=== PATIENT | male | born 1970 | race Caucasian/White ===

== ENCOUNTER 2017-04-21 07:03 | Emergency (ER) | payer BC, OTHER ==
[2017-04-21 07:15] VITALS: BP 156/84; BMI 28.8
[2017-04-21] MEDS ORDERED: TORADOL 60 MG VIAL ONE (08:07)
[2017-04-21] MEDS ORDERED: TORADOL 60 MG VIAL IM ONE (08:07)
--- NOTE | 2017-04-21 08:09 | DR.GENAD ---
HPI - PCP Primary Care Physician: Osmani - Complaint/Symptoms Chief Complaint Doctors Comments: Patient admits to right rib pain 10/10 in severity, worse with movement and deep inspiration. He states that he has a hisitory of back probllems but the back is not bothering him at this time. Chief Complaint:: "I fell from a tree stand about 4 days ago and I think I may have broke a rib on my right side. I fell flat on my back. I have already had a lot of back issues, but I really hurt it this time. I was trying to let it heal but it got worse last night." Self Treatment fo Chief Complaint: Patient took a [place] 10 and is still in pain. - Source History Provided: Patient - Mode of Arrival Mode of Arrival: Ambulatory - Timing Onset of Chief Complaint: 04/18/17 PMH - PMH Past Medical History: Yes Past Medical History: Hypertension, Diabetes Past Surgical History: Yes Surgical History: Ortho Surgery Past Surgical History Comment: Rotator cuff - right side - Family History History of Family Medical Conditions: Yes Family Medical History: Diabetes Mellitus, [place], Coronary Artery Disease, Hypertension - Social History Does patient currently use any type of tobacco product: Yes Have you used tobacco products in the last 12 months: Yes Type of Tobacco Use: Cigarettes Does any household member use tobacco: No Alcohol Use: None Do you use any recreational Drugs:: No Lives With: Family Lives Where: Home - infectious screening In the last 2 months have you had wt loss of >10#?: NO Have you had fever, night sweats or hemotysis?: No Have you traveled outside the country in the last 6 months?: No Isolation: Standard ROS - Review of Systems Eyes: No Symptoms Reported ENTM: No Symptoms Reported Respiratoy: No Symptoms Reported Cardiovascular: No Symptoms Reported Gastrointestinal/Abdominal: No Symptoms Reported Genitourinary: No Symptoms Reported Neurological: No Symptoms Reported Musculoskeletal: Right, Rib(s) (pain) Integumentary: No Symptoms Reported Hematologic/Lymphatic: No Symptoms Reported Endocrine: No Symptoms Reported Psychiatric: No Symptoms Reported All Other Systems: Reviewed and Negative PE - Vital Signs Vitals: Temperature 98.4 F Pulse Rate 85 Respiratory Rate 18 Blood Pressure [Left Arm] 154/79 Blood Pressure 156/84 O2 Sat by Pulse Oximetry 97 - General General Appearance: Alert, Anxious - Head Head Exam: Normal Inspection, Atraumatic - Eyes Eye exam: Normal Appearance, PERRL, EOMI - ENT ENT Exam: Normal Exam External Ear Exam: Normal External Inspection TM/Canal Exam: Bilateral Normal Nose Exam: Normal Nose Exam Mouth Exam: Normal Inspection Throat Exam: Normal Inspection - Neck Neck Exam: Normal Inspection, Full ROM - Chest Chest Inspection: Normal Inspection, Symmetric Chest Wall Rise - Respiratory Respiratory Exam: Normal Lung Sounds Bilat Respiratory Exam: Bilateral Clear to Auscultation - Cardiovascular Cardiovascular Exam: Regular Rate - Abdominal Exam Abdominal Exam: Normal Inspection, Normal Bowel Sounds Abdominal Tenderness: negative: RUQ, RLQ, LUQ, LLQ, Epigastrium, Suprapubic, Diffuse, Mild, Moderate, Severe, Other - Extremities Extremities Exam: Normal Inspection, Full ROM - Back Back Exam: Normal Inspection - Neurologic Neurological Exam: Alert, Oriented X3, CN II-XII Intact - Psychiatric Psychiatric Exam: Normal Affect - Skin Skin Exam: Warm, Dry, Intact ROR - XRAY XRAY Interpreted by: Radiologist (Rib series: negative) - Diagnosis Discharge Problem: Contusion of rib on right side Qualifiers: Encounter type: initial encounter Qualified Code(s): S20.211A - Contusion of right front wall of thorax, initial encounter - Discharge Plan Condition: Stable - Follow ups/Referrals Follow ups/Referrals: FARSHAD BLACK [Primary Care Provider] - 3 days - Instructions
--- NOTE | 2017-04-21 08:36 | RAD ---
Indication: Fall. Exam: Bilateral rib series. Technique: AP of the chest and oblique views of the ribs were obtained. Comparison: 08/02/2012 Findings: The heart is normal. The lungs are clear. There is no fracture seen. No consolidation, effu jeronimo or pneumothorax is seen. Impression: No abnormality seen. Reported By:
== END 2017-04-21 08:56 | disposition home or self-care (01) ==
LOC: ER 07:45
DX: S20.211A Contusion of right front wall of thorax, initial encounter (principal); W14.XXXA Fall from tree, initial encounter; Y92.9 Unspecified place or not applicable
CPT/HCPCS: 71111; 96372; 99282; J1885